=== PATIENT | female | born 1985 | race Two or more races ===

== ENCOUNTER 2025-09-07 11:11 | Emergency (ER) | payer MEDICAID, SELFPAY ==
[2025-09-07 11:11] VITALS: BMI 39.4
[2025-09-07 11:38] VITALS: BP 160/73; PULSE 91; RESP 18; TEMP 36.6; O2SAT 97
--- NOTE | 2025-09-07 12:02 | XR_ITS ---
Examination: CT brain head without contrast. 2-D sagittal coronal reconstructions Date and time of exam: September 07, 2025, 1230 hours INDICATIONS: Syncopal episodes x4 today CTDI: vol (mGy): 50.4 DLP: (mGycm): 979 Technique: Multiple CT axial sections of the brain have been obtained, 5 mm slice thickness. Contrast has not been administered. 2-D sagittal, coronal reconstructions have been obtained Low dose protocols were performed. One or more of the following dose reduction techniques were used; automated exposure control, adjustment of the mA and/or KV according to patient size, use of iterative reconstruction technique. Findings: No significant ventricular enlargement. Intra-axial or extra-axial hemorrhage density is not seen. No mass effect or midline shift Basal cisterns are not remarkable. Fourth ventricle is midline. Cranial vault intact. Impression: Negative for acute hemorrhage, mass effect or midline shift Advise clinical correlation and follow-up accordingly
--- NOTE | 2025-09-07 12:02 | XR_ITS ---
EXAMINATION: PA chest single view TECHNIQUE: Upright PA chest single view Date and time: September 07, 2025, 1202 hours INDICATIONS: Shortness of breath today. FINDINGS: Normal heart size Lungs are clear. Osseous structures intact IMPRESSION: No active disease
--- NOTE | 2025-09-07 12:03 | PD.EDRME ---
Rapid Medical Screening Exam [facility] Arrival date/time: 09/07/25 11:11 This is a 40-year-old male that comes into the emergency room with complaints of syncope x 4 times and a possible seizure that happened yesterday. Patient reports that yesterday she went to a concert and as they were going into the concert she had a syncopal episode and hit the side of her head. Patient states that she was helped by her that was standing her up. Patient states she felt faint and it happened 3 other times. One of the occasions patient's son-in-law told her that she started to shake and was unconscious. according to patient this did not last very long. Patient left the concert and got something to eat but it did not help her feel better. Patient drove back home and came to the emergency room. Patient has a history of diabetes. Patient currently feels weak. I have greeted and performed a focused initial assessment of this patient. Initial appropriate labs ordered at this time. A comprehensive ED assessment and evaluation of the patient and analysis of all test and completion of medical decision making process will be conducted by additional ED provider. Chief Complaint: Syncope / Near Syncope Time Seen by Provider: 09/07/25 11:42 Vital signs: Vital Signs Temperature 97.8 F 09/07/25 11:38 Pulse Rate 91 09/07/25 11:38 Respiratory Rate 18 09/07/25 11:38 Blood Pressure 160/73 H 09/07/25 11:38 Pulse Oximetry (%) 97 09/07/25 11:38 Oxygen Delivery Method Room Air 09/07/25 11:38 Exam: Alert and oriented, breathing even and unlabored, skin warm and dry Clinical Impression: Syncope
--- NOTE | 2025-09-07 12:24 | PD.EDSYNC ---
ED Syncope RME/HPI General Chief Complaint: Syncope / Near Syncope Stated Complaint: FAINTED 4 TIMES Time Seen by Provider: 09/07/25 11:42 Arrival date/time: 09/07/25 11:11 Limitations: no limitations RME / HPI RME / HPI narrative: 09/07/25 11:11 This is a 40-year-old male that comes into the emergency room with complaints of syncope x 4 times and a possible seizure that happened yesterday. Patient reports that yesterday she went to a concert and as they were going into the concert she had a syncopal episode and hit the side of her head. Patient states that she was helped by her that was standing her up. Patient states she felt faint and it happened 3 other times. One of the occasions patient's son-in-law told her that she started to shake and was unconscious. according to patient this did not last very long. Patient left the concert and got something to eat but it did not help her feel better. Patient drove back home and came to the emergency room. Patient has a history of diabetes. Patient currently feels weak. I have greeted and performed a focused initial assessment of this patient. Initial appropriate labs ordered at this time. A comprehensive ED assessment and evaluation of the patient and analysis of all test and completion of medical decision making process will be conducted by additional ED provider. DR. DALE MAIN ED EVALUATION: 40-year-old female with history of asthma presents after fainting four times yesterday. She reports each episode lasted a few seconds and denies chest pain. She denies shortness of breath, palpitations, or headache. No other complaints reported. Related Data Previous Rx's ?Medication ?Instructions ?Recorded fexofenadine 180 mg tablet 180 mg PO QDAY #30 tabs 11/07/14 ([facility]) ondansetron 8 mg disintegrating 8 mg PO Q8H PRN nausea and 02/18/24 tablet vomiting #14 tabs buspirone 15 mg capsule 15 mg PO TID #20 caps 09/07/25 losartan 25 mg tablet 25 mg PO QDAY #20 tabs 09/07/25 Allergies Allergy/AdvReac Type Severity Reaction Status Date / Time alprazolam Allergy Mild Abdominal Verified 09/07/25 11:17 Pain hydrocodone bit Allergy Mild SENSITIVITY Verified 09/07/25 11:17 aspirin Allergy Unknown UPSET Verified 09/07/25 11:17 STOMACH paroxetine Allergy Unknown ABD PAIN, Verified 09/07/25 11:17 S[place] Review of Systems Review of Systems Systems Reviewed: All systems reviewed, normal except as documented Past Medical History Past Medical History RESPIRATORY: Positive Asthma Social History SMOKING STATUS: Never smoker SUBSTANCE USE: does not use ALCOHOL: Never ED Exam General Limitations: Present no limitations General appearance: Present alert and in no apparent distress Head Head exam: Present atraumatic, normocephalic and normal inspection Eye Eye exam: Present normal appearance, PERRL and EOMI ENT ENT exam: Present normal exam, normal oropharynx and mucous membranes moist Neck Neck exam: Present normal inspection, full ROM and trachea midline Chest Chest inspection: Present normal inspection and symmetric chest wall rise Respiratory Respiratory exam: Present normal lung sounds bilaterally Cardiovascular Cardiovascular exam: Present regular rate, normal rhythm and normal heart sounds Abdominal Exam Abdominal exam: Present soft and normal bowel sounds Extremities Exam Extremities exam: Present normal inspection and full ROM Back Exam Back exam: Present normal inspection and full ROM Neurological Exam Neurological exam: Present alert, oriented X3 and CN II-XII intact Psychiatric Psychiatric exam: Present normal affect and normal mood Skin Skin exam: Present warm, dry, intact and normal color Course Quality Measures none Orders Category Date Time Status EKG (ED ONLY) *Do not use* NOW Care 09/07/25 12:02 Completed Orthostatic Vitals NOW Care 09/07/25 12:[address] head/brain wo con Stat Exams 09/07/25 12:02 Completed EKG (ED Only) Stat Exams 09/07/25 12:02 Ordered XR chest 1V Stat Exams 09/07/25 12:02 Completed BNP [B-Type Natriuretic Peptide] Stat Lab 09/07/25 12:56 Completed CBC Stat Lab 09/07/25 12:56 Completed Comprehensive Metabolic Panel Stat Lab 09/07/25 12:56 Completed Drug Screen,Urine Stat Lab 09/07/25 13:15 Completed HCG Qualitative,Urine Stat Lab 09/07/25 13:15 Completed Troponin I Stat Lab 09/07/25 12:56 Completed Urinalysis, C/S if Indicated Stat Lab 09/07/25 13:15 Completed Urine Culture Stat Lab 09/07/25 13:15 Received Vital Signs Vital signs: Vital Signs Temperature 97.8 F 09/07/25 11:38 Pulse Rate 91 09/07/25 11:38 Respiratory Rate 18 09/07/25 11:38 Blood Pressure 160/73 H 09/07/25 11:38 Pulse Oximetry (%) 97 09/07/25 11:38 Oxygen Delivery Method Room Air 09/07/25 11:38 Syncope MDM Narrative MDM Narrative:: IAngie, am scribing for and in the presence of Dr. Dale. 40-year-old female with four brief syncope episodes yesterday without chest pain. Exam normal. Assessment for vasovagal syncope, cardiac syncope, and orthostatic hypotension. Impression is syncope. Plan is to perform a cardiac workup. Patient stable for evaluation. EKG#1: Interpreted by me: sinus rhythm, rate 85, no axis deviation, no ischemia, normal intervals Patient data External records reviewed:: [facility] previous records Clinical information provided by:: patient Social determinants that could affect healthcare access:: none Patient has the following chronic illnesses:: Asthma How is presenting disease/condition affected by chronic disease/condition?: uneffected by Evaluation data The following diagnostics were reviewed and interpreted by me:: lab results, radiology exam(s) and EKG tracing(s) (EKG#1: Interpreted by me: sinus rhythm, rate 85, no axis deviation, no ischemia, normal intervals ) Lab and/or radiology exams considered but not ordered:: none Interpretation Summary: See MDM narrative above. RADIOLOGY Procedure(s): CT head/brain wo [facility] Accession Number(s): [id number] cc: Adriano Sinha MD; Eron Lamar MD; Kacey Lew NP~ Examination: CT brain head without contrast. 2-D sagittal coronal reconstructions Date and time of exam: September 07, 2025, 1230 hours INDICATIONS: Syncopal episodes x4 today CTDI: vol (mGy): 50.4 DLP: (mGycm): 979 Technique: Multiple CT axial sections of the brain have been obtained, 5 mm slice thickness. Contrast has not been administered. 2-D sagittal, coronal reconstructions have been obtained Low dose protocols were performed. One or more of the following dose reduction techniques were used; automated exposure control, adjustment of the mA and/or KV according to patient size, use of iterative reconstruction technique. Findings: No significant ventricular enlargement. Intra-axial or extra-axial hemorrhage density is not seen. No mass effect or midline shift Basal cisterns are not remarkable. Fourth ventricle is midline. Cranial vault intact. Impression: Negative for acute hemorrhage, mass effect or midline shift Advise clinical correlation and follow-up accordingly Dictated By: Eron Lamar MD Procedure(s): XR chest 1V Accession Number(s): [id number] cc: Eron Lamar MD; Kacey Lew NP~ EXAMINATION: PA chest single view TECHNIQUE: Upright PA chest single view Date and time: September 07, 2025, 1202 hours INDICATIONS: Shortness of breath today. FINDINGS: Normal heart size Lungs are clear. Osseous structures intact IMPRESSION: No active disease Dictated By: Eron Lamar MD Medications / Prescriptions Medications or Prescriptions considered but not ordered:: none Medication administrations:: see above if any Consultations Consultation(s) initiated? (list below): No Diagnosis Syncope Differential Diagnosis: other (vasovagal syncope, cardiac syncope, and orthostatic hypotension) Most likely diagnosis given after review of the tests above:: Anxiety Vasovagal syncope Admission Indicated Admission indicated?: not indicated Admission Request Was there a request for admission?: No Disposition Plan Disposition Plan: Discharge Discharge Attestation Discharge Attestation: The patient and all family members were given an opportunity to ask questions and understood the discharge instructions. Discharge instructions specifically effects, indications for sooner follow up or return to the emergency department, and the expected course of current diagnosis. Patient condition: Stable Discharge Plan Plan Patient Disposition: HOME (Self Care) Patient condition on transfer: Stable Prescriptions/Referrals Prescriptions/Med Rec: New buspirone 15 mg capsule 15 mg PO TID Qty: 20 0RF losartan 25 mg tablet 25 mg PO QDAY Qty: 20 0RF No Action fexofenadine [[facility] Allergy] 180 MG tablet 180 mg PO QDAY Qty: 30 0RF ondansetron 8 mg tablet,disintegrating 8 mg PO Q8H PRN (Reason: nausea and vomiting) Qty: 14 0RF Referrals: No Primary/Family,Physician [Referring Provider] - In 1 week Problem List Clinical Impression: Anxiety, Syncope, vasovagal Patient/Caregiver Discharge Instructions Discharge Activity: activity as tolerated Education Materials: Causes of Syncope, Diagnosing Syncope, Dizziness Fainting Poss Causes, ED Anxiety Reaction, ED Near-Fainting- Vagal Reaction, ED Dizziness or Syncope ... Print Language: Tajik Stand Alone Forms: Moni Award Info., Work/School Release, Patient Portal Info Letter
[2025-09-07 13:31] LABS: B-Type Natriuretic Peptide < 20 pg/mL (0-100)
[2025-09-07 13:32] LABS: Alanine Aminotransferase 11 U/L (10-49); Albumin, Serum 4.1 gm/dL (3.5-5.0); Albumin/Globulin Ratio 1.4 (1.2-2.2); Alkaline Phosphatase 94 U/L (46-116); Anion Gap 11 (7-16); Aspartate Amino Transferase 13 U/L (0-34); BUN/Creatinine Ratio 11 Ratio (12-20); Bilirubin,Total 0.3 mg/dL (0.3-1.2); Blood Urea Nitrogen 12 mg/dL (9-23); Calcium 8.6 mg/dL (8.3-10.6); Calcium (Corrected) 8.6 mg/dL (8.5-10.1); Carbon Dioxide 23.6 mMol/L (20.0-31.0); Chloride 107 mMol/L (98-107); Creatinine (Component) 1.1 mg/dL (0.6-1.3); Estimated Creatinine Clearance 79.2 mL/min (>60); Globulin 2.9 gm/dL (2.3-3.5); Glucose 121 mg/dL (74-106); Osmolality,Calculated 283 (275-295); Potassium 3.6 mMol/L (3.4-5.1); Sodium 142 mMol/L (136-145); Total Protein 7.0 gm/dL (5.7-8.2); Troponin I < 0.002 ng/mL (0.0-0.045); eGFR > 60 See Note
[2025-09-07 13:34] LABS: Basophils # (Auto) 0.1 Thou/mm3 (0.0-0.2); Basophils % (Auto) 1 % (0-2.5); Eosinophils # (Auto) 0.1 Thou/mm3 (0.0-0.5); Eosinophils % (Auto) 1 % (0-10); Hematocrit 27.6 % (36.0-46.0); Immature Granulocytes Auto 0.07 Thou/mm3 (0.00-0.00); Lymphocytes # (Auto) 1.9 Thou/mm3 (1.0-4.8); Lymphocytes % (Auto) 16 % (10-50); Mean Corpuscular HGB Conc 27.9 g/dl (31.0-37.0); Mean Corpuscular Hemoglobin 16.5 pg (25.0-35.0); Mean Corpuscular Volume 59 fL (80-100); Monocytes # (Auto) 0.6 Thou/mm3 (0.0-0.8); Monocytes % (Auto) 5 % (0-12); Neutrophils # (Auto) 9.2 Thou/mm3 (1.8-7.7); Neutrophils % (Auto) 77 % (37-80); Nucleated Red Blood Cell # 0.02 Thou/mm3 (0.00-0.00); Nucleated Red Blood Cell % 0 /100 WBC (0); Platelet Count 570 Thou/mm3 (140-440); RDW Standard Deviation 38.5 fL (36.4-46.3); Red Blood Count 4.68 Miln/mm3 (4.00-5.20); White Blood Count 12.0 Thou/mm3 (3.6-11.0)
[2025-09-07 13:35] VITALS: BP 160/108; BP 172/96; BP 174/96; PULSE 81; PULSE 85; PULSE 94
[2025-09-07 13:38] LABS: Collection Type, Urine Voided
[2025-09-07 13:42] LABS: Hemoglobin 7.7 g/dL (12.0-16.0)
[2025-09-07 13:43] LABS: HCG Qualitative,Urine Negative
[2025-09-07 13:45] LABS: Bacteria,Urine 2+; Bilirubin,Urine Negative (Negative); Blood,Urine Negative (Negative); Clarity,Urine Hazy (Clear/Hazy); Color,Urine Lt-Yellow (Lt Yel-Yel); Culture Indicated,Urine Yes; Glucose, Urine 4+ (Negative); Ketones,Urine Negative (Negative); Leukocyte Esterase,Urine Negative (Negative); Nitrite,Urine Negative (Negative); PH,Urine 6.0 (5.0-7.0); Protein,Urine Negative (Neg - Trace); RBC,Urine 1 /hpf (0-3); Specific Gravity,Urine 1.043 (1.001-1.035); Squamous Epithelial Cell,Urine 5 /hpf (0-5); Urobilinogen,Urine Negative mg/dL (0.0-1.0); WBC,Urine 1 /hpf (0-5)
[2025-09-07 13:55] LABS: Amphetamine/Methamp Scrn,U Negative (Negative); Barbiturate Screen,Urine Negative (Negative); Benzodiazepines Screen,Urine Negative (Negative); Benzoylecgonine Screen, Ur Negative (Negative); Fentanyl Screen,Urine Negative (Negative); Opiate Screen,Urine Negative (Negative); THC Screen,Urine Positive (Negative)
[2025-09-07 14:10] VITALS: BP 162/94; PULSE 77; RESP 18; TEMP 36.8; O2SAT 100
[2025-09-07 17:23] LABS: Path Review Blood Smear Sent to Pathologist
== END 2025-09-07 14:25 | disposition home or self-care (01) ==
PROVIDERS: Nurse Practitioner Family; Emergency Provider Emergency Medicine; PCP Family Medicine
DX: F41.9 Anxiety disorder, unspecified (principal); R55 Syncope and collapse; R06.02 Shortness of breath; R94.31 Abnormal electrocardiogram [ECG] [EKG]
CPT/HCPCS: 36415; 70450; 71045; 80053; 80307; 81001; 81025; 83880; 84484; 85025; 87086; 93005; 99283